=== PATIENT | male | born 1970 | race Caucasian/White ===

== ENCOUNTER → 2017-01-30 | Outpatient (CLI) | payer OTHER ==
--- NOTE | 2017-01-30 09:53 | RADRPT ---
PROCEDURE: XR left knee. CLINICAL INDICATION: Knee pain TECHNIQUE: AP weightbearing, PA weightbearing, lateral weightbearing and sunrise views are availab le for review. COMPARISON: None available FINDINGS: ACL repair with metallic bone anchors. There is mild to moderate osteoarthrosis involving the medial tibial femoral compartment, lateral ti bial femoral compartment and patellofemoral compartment. This is associated with joint space narrowi ng, subchondral sclerosis and osteophytosis. There is otherwise normal mineralization, architecture and alignment. No fractures are identified. No osseous lesions are identified. The soft tissues are unremarkable. IMPRESSION: ACL repair with metallic bone anchors Mild to moderate osteoarthrosis involving the medial tibial femoral compartment, lateral tibial femo ral compartment and patellofemoral compartment. RPTAT: HGDB .Reji Barlow MD, Date Time Electronically viewed and signed by .Reji Barlow MD, on 01/30/2017 09:52 .B/
== END | disposition home or self-care (01) ==
LOC: HKI 08:54
PROVIDERS: ATTEND Orthopaedic Surgery
DX: M17.12 Unilateral primary osteoarthritis, left knee (principal); M25.562 Pain in left knee
CPT/HCPCS: 73564; G0463

== ENCOUNTER → 2017-02-20 | Outpatient (CLI) | payer OTHER ==
[~2017-02-20] MED LIST: FINA1TAB7 PO; FLUO40CA10 PO; TRAM50TA2 PO
--- NOTE | 2017-02-20 17:52 | RADRPT ---
PROCEDURE: Limited x-ray of both lower extremities. CLINICAL INDICATION: Bilateral leg pain. TECHNIQUE: Single frontal view of both lower extremities was obtained from the hips to the calves. COMPARISON: Left knee radiographs dated 01/30/2017. FINDINGS: The hips are grossly normal. There has been prior bilateral anterior cruciate ligament repair. The re are moderate degenerative changes of both knees with osteophytes and medial joint compartment simona rowing. IMPRESSION: 1. Grossly normal hips. 2. Prior bilateral anterior cruciate ligament repair. 3. Moderate degenerative changes of both knees predominately affecting the medial joint compartment s. RPTAT: QQ .Anthony Hong MD, MD Date Time Electronically viewed and signed by .Anthony Hong MD, MD on 02/20/2017 17:52 .R/
== END | disposition home or self-care (01) ==
LOC: HKI 10:28
PROVIDERS: ATTEND Orthopaedic Surgery
DX: Z01.818 Encounter for other preprocedural examination (principal); M17.12 Unilateral primary osteoarthritis, left knee; M25.562 Pain in left knee
CPT/HCPCS: 77073; G0463

== ENCOUNTER 2017-02-28 07:55 | Inpatient (IN) | payer OTHER ==
[2017-02-20 13:18] VITALS: BMI 27.9
[~2017-02-28] VITALS: Ht 170.2 cm; Wt 80.8 kg
[2017-02-28] VITALS (30 sets, daily range): BP systolic 94–129; BP diastolic 32–75; PULSE 0–70; RESP 12–26; Ht 170.2 cm; Wt 80.8 kg
[2017-02-28] MEDS ORDERED: FLUO10CA66 PO (08:19)
[2017-02-28] MEDS ORDERED: oxyCODONE (CR) 10 MG TAB [oxyCONTIN] X1 DOSE PO ONE (08:30)
[2017-02-28] MEDS ORDERED: PAIN COCKTAIL-CEFUROXIME IRR ONE ×7 (08:30)
[2017-02-28] MEDS ORDERED: TRANEXAMIC ACID in SOD CHLORIDE 0.9% 100 ML ON CALL TO OR IV ONE (08:30)
[2017-02-28] MEDS ORDERED: traMADOL 50 MG TAB X 1 DOSE PO ONE (08:30)
[2017-02-28] MEDS ORDERED: CEFAZOLIN 2GM/50 ML (PMX) 50 ML X1 BEFORE INCISION IVPB ONE (08:30)
[2017-02-28] MEDS ORDERED: CELECOXIB 400 MG PO X1 DOSE PO ONE (08:30)
[2017-02-28] MEDS ORDERED: PREGABALIN 300 MG PO X1 PO ONE (08:30)
[2017-02-28] MEDS: LACTATED RINGER'S 1,000 ML IV SCH ×4 (09:19→23:15)
[2017-02-28] MEDS ORDERED: EXPAREL NOTE (BUPIVICAINE LIPOSOMAL) XX SCH (10:30)
[2017-02-28] MEDS ORDERED: FENTAnyl 50 MCG/ML VIAL ONE (11:22)
[2017-02-28] MEDS ORDERED: MIDAZOLAM 1 MG/ML 2 ML INJ ONE (11:22)
[2017-02-28] MEDS ORDERED: PROPOFOL 100 ML ONE (11:22)
[2017-02-28] MEDS ORDERED: DEXAMETHASONE 4 MG/ML 1 ML INJ ONE (11:23)
[2017-02-28] MEDS ORDERED: METOCLOPRAMIDE 10 MG INJ ONE (11:24)
[2017-02-28] MEDS: traMADol 50 MG TAB PO SCH ×3 (12:00→23:10)
[2017-02-28] MEDS ORDERED: VANCOMYCIN 1 GM INJ ONE (12:27)
[2017-02-28] MEDS ORDERED: SODIUM CL BACTERIOSTATIC 30 ML INJ ONE (12:27)
[2017-02-28] MEDS ORDERED: POLYMYXIN B 500000 UNIT INJ ONE (12:27)
--- NOTE | 2017-02-28 12:29 | HPN ---
Date/Time of Note Date/Time of Note DATE: 02/28/17 TIME: 12:29 Interval H&P Admission Note Pt. seen H&P reviewed: No system changes No change from H&P by Dr. Diogenes Sam on 02/20/17 JOHANNA OSEGUERA MD Feb 28, 2017 12:29
[2017-02-28] MEDS ORDERED: CEFAZOLIN 1 GM INJ ONE (12:46)
[2017-02-28] MEDS: BUPIVACAINE LIPOSOME/PF 266 MG/20 ML VIAL INFIL ONE ×2 (13:19→14:10)
[2017-02-28] MEDS ORDERED: EPHEDrine SULFATE 50 MG/5 ML SYG ONE (13:27)
[2017-02-28] MEDS ORDERED: DIPHENHYDRAMINE 50 MG INJ IV PRN (13:30)
[2017-02-28] MEDS ORDERED: ONDANSETRON 4 MG INJ IV PRN ×2 (13:30→15:30)
[2017-02-28] MEDS ORDERED: MEPERIDINE 25 MG INJ IV PRN (13:30)
[2017-02-28] MEDS ORDERED: HYDROmorphONE (0.2 MG/ML) 10ML SYG IV PRN ×3 (13:30)
[2017-02-28] MEDS ORDERED: METOCLOPRAMIDE 10 MG INJ IV PRN (13:30)
[2017-02-28] MEDS ORDERED: PROPOFOL 40 ML ONE (14:21)
[2017-02-28] MEDS: TRANEXAMIC ACID in SOD CHLORIDE 0.9% 100 ML FOR INTRAOP IVPB ONE ×3 (14:22)
[2017-02-28] MEDS ORDERED: BACITRACIN 50000 UNITS INJ ONE (14:44)
--- NOTE | 2017-02-28 15:25 | OPR ---
Date/Time of Note Date/Time of Note DATE: 02/28/17 TIME: 15:23 Operative Report Free Text/Dictation Dictation # [id number] Procedure Date: Feb 28, 2017 Preoperative Diagnosis Left Knee OA Postoperative Diagnosis Same Operation Performed Left TKA Surgeon: JOHANNA OSEGUERA MD property management assistant: ALFONSO BURCH PA-C Anesthesia: general, spinal Anesthesiologist: YENY MA MD Tourniquet Time: 72 minutes Estimated Blood Loss: 50 - 100 ml's Specimens Bone and soft tissue Tubes/Drains Hemovac x 1 Complications: None Pt Condition Post Procedure: stable Disposition: PACU JOHANNA OSEGUERA MD Feb 28, 2017 15:25
--- NOTE | 2017-02-28 15:25 | PN ---
Date/Time of Note Date/Time of Note DATE: 02/28/17 TIME: 15:24 Assessment/Plan Lines/Catheters IV Catheter Type (from Nrsg): Peripheral IV Assessment/Plan Assessment/Plan Stable in PACU, s/p left TKA -cont abx until drains removed -pain meds as needed -ASA/SCDSs for DVT prophylaxis -OOB with PT -monitor drain -check AM labs -d/c vu in AM XR of the left knee is pending at this time Subjective 24 Hr Interval Summary Stable in PACU. Moving all extremities. Denies any pain. Exam/Review of Systems Vital Signs Vitals Vital Signs Date Time Temp Pulse Resp B/P Pulse Ox O2 Delivery O2 Flow Rate FiO2 02/28/17 09:23 98.8 53 16 129/75 99 Room Air Intake and Output 02/27/17 02/27/17 02/28/17 15:00 23:00 07:00 Intake Total 108.1 ml Balance 108.1 ml Exam Free Text/Dictation Hemovac: Minimal Dressing dry Incision clean, dry, and intact without redness or drainage Thigh soft 5/5 Quadriceps, Tibialis Anterior, EHL, Gastroc, Soleus, Peroneals Normal sensation Palpable DT/PT, CR <2 sec No distal edema ALFONSO BURCH PA-C Feb 28, 2017 15:25
[2017-02-28] MEDS ORDERED: NACL 0.9% 3 ML SYG IV SCH (15:30)
[2017-02-28] MEDS ORDERED: ASPIRIN (EC) 325 MG TAB PO ONE (15:30)
[2017-02-28] MEDS ORDERED: MAGNESIUM HYDROXIDE 30ML CUP PO PRN (15:30)
[2017-02-28] MEDS ORDERED: NA PHOSPHATE/BIPHOS 133 ML ENEMA PR PRN (15:30)
[2017-02-28] MEDS ORDERED: DIPHENHYDRAMINE 25 MG CAP PO PRN (15:30)
[2017-02-28] MEDS ORDERED: oxyCODONE 5 MG TAB PO PRN (15:30)
[2017-02-28] MEDS ORDERED: BISACODYL 10 MG SUPP PR PRN (15:30)
[2017-02-28] MEDS: CEFAZOLIN 2 GM/50 ML (PMX) 50 ML IVPB SCH ×2 (15:42→23:10)
[2017-02-28 15:49] LABS: HEMATOCRIT 37.5 % (42.0-52.0); HEMOGLOBIN 12.5 g/dl (14.0-18.0)
--- NOTE | 2017-02-28 15:53 | OPR ---
DATE OF OPERATION: 02/28/2017 PREOPERATIVE DIAGNOSIS: Left knee osteoarthritis. POSTOPERATIVE DIAGNOSIS: Left knee osteoarthritis. OPERATION PERFORMED: Left total knee arthroplasty. SURGEON: Johanna Gutierrez MD SCOREKEEPER: BETZY Fishman COMPONENTS USED: DePuy Attune size 7 femoral component, size 7 tibial base plate, 5 mm polyethylene insert, and a 38 patellar button. ANESTHESIA: Spinal plus general endotracheal intubation plus periarticular injection. ANESTHESIOLOGIST: Belen Cancino MD TOURNIQUET TIME: 72 minutes. ESTIMATED BLOOD LOSS: 50 mL. INTRAVENOUS FLUIDS: 2 liters of crystalloid. SPECIMENS: Bone and soft tissue. DRAINS: Hemovac x1. COMPLICATIONS: None. DISPOSITION: The patient tolerated the procedure well and was taken to the recovery room in stable condition. INDICATIONS: The patient is 47-year-old gentleman who has had progressive worsening pain in the lef t knee who has developed severe osteoarthritis. He had a previous ACL reconstruction. He has faile d nonsurgical means of treatment to control his pain including activity modifications, pain medicati ons, intra-articular injections and ambulatory assist devices. Despite these measures, he has had w orsening pain and I felt he would benefit from a total knee arthroplasty. The risks, benefits, and alternatives of the procedure were explained in detail to the patient. I e xplained the risks of the surgery to include but not be limited to, bleeding and possible need for b lood transfusion; infection; pain; stiffness; neurovascular injury with possible numbness, weakness, and/or paralysis anywhere from the knee down to the toes; fracture; instability; dislocation; wear and/or loosening of the prosthesis and possible need for future revision; blood clots; pulmonary emb olism; and anesthetic complications such as heart attack, stroke, GI bleed, pneumonia, and/or . Ample time was allowed for the patient to ask questions, all of which were addressed and answered. The patient understood the risks involved and wished to proceed. Informed consent was signed prior to the procedure. PROCEDURE: The patient's left knee was initialed with a marking pen in the preoperative area to sugey ntify the correct operative site. The patient was brought to the operating room and transferred fro [facility] to the operating table where a spinal anesthetic was administered. T he patien t was then anesthetized and intubated. A Perez catheter was placed. A timeout was performed to con firm that the left leg was the correct operative site. The patient was given 2 g of Ancef within on e hour prior to the procedure. A tourniquet was placed on the operative proximal thigh. The operat kimberly knee and lower extremity were prepped and draped in the usual sterile fashion. The operative lo wer extremity was elevated and exsanguinated with an Esmarch tourniquet. The proximal thigh tourniq uet was inflated to 300 mmHg. The knee was flexed. A midline incision was made and carried down through the subcutaneous tissue a nd fat with sharp dissection. Limited medial and lateral flaps were raised. A median parapatellar arthrotomy approach was performed. Synovial fluid was normal in color and consistency. The patella was everted and the knee flexed. There were severe tricompartmental osteoarthritic changes noted. A medial release was performed at the joint line to the midcoronal plane. The ACL and PCL and remnan ts of the menisci were excised. The stepped drill was used to open up the femoral canal which was i rrigated and sucked dry. The intramedullary guide alex was passed up the femur, and the distal cutti ng block was pinned into place for a 6 degree valgus cut, taking 10 mm of bone off distally. The osc illating saw was used to make the cut. The tibia was subluxed anteriorly. The tibial cutoff jig was placed over the center of the talus d istally and over the junction of the medial and middle third of the tibial tubercle proximally. The guide was pinned into place and the oscillating saw was used to make the cut. The tibia was sized. The extension gap was checked and accommodated the 5 mm spacer block with the knee in full extensio n. There was no varus or valgus instability. At this point, the femur was sized with the posterior referencing guide. Two holes were drilled in 3 degrees of external rotation. The two holes were in line with the transepicondylar axis, perpendi cular to Warrick's line, and in line with the tibial cutoff jig brought up with the knee flexed 90 degrees and tensed with 2 lamina spreaders, suggesting the femoral rotation was correct. The four- in-one cutting block was pinned into place. The anterior and posterior cuts and chamfer cuts were m mary with the oscillating saw. The flexion gap was checked and accommodated the 5 mm spacer block at 90 degrees. There was no varus or valgus instability, suggesting the flexion and extension gaps we re now equal. The central box was cut out on the femur. The tibia was drilled and punched in proper rotation. Tri al components were placed into position with a trial insert. The patella was cut from 26 mm down to 16 mm and sized. Three holes were drilled and the trial button placed in position. With all the t rials now in place, the knee was taken through range of motion and came to full extension as evidenc ed by the fact that with the foot on my abdomen and axial loading, there was no tendency for the kne e to flex. The knee was able to be flexed to 125 degrees with good patellar tracking with no latera l tilt or subluxation. At this point, I was satisfied with the overall range of motion, stability, and patellar tracking. The trials were removed. The real components were opened. Two bags of cement were mixed, one with and one without premixed antibiotic. The knee was irrigated with antibiotic saline and sucked dry. Once the cement was in a doughy stage, the real components were cemented into place. The knee was held in full extension, and the patellar component was held with a patellar clamp. All excess cemen t was removed with curettes. As the cement was hardening, the synovial/capsular layer was infiltrat ed with a mixture of 150 mg of 0.5% bupivacaine, 8 mg of Duramorph, 300 mcg of epinephrine, 30 mg of Toradol, 100 mcg of clonidine, 750 mg of cefuroxime and 86 mL of normal saline, followed by an inje ction of 266 mg of liposomal bupivacaine. A Hemovac drain was placed in the deep portion of the wound and brought out the anterolateral thigh. Once the cement was completely hardened, the trial liner was removed, and the real insert was open ed. The tourniquet was let down, and there was good hemostasis. The knee was then irrigated with a mixture of Betadine/saline and then antibiotic saline with pulsatile lavage. The real insert was impacted into the tibia and reduced onto to the femur. The arthrotomy was closed with a few interrupted #1 Ethibond in a uyanam-qo-qetus fashion, and then closed in a watertight fashion with a running #2 Stratafix suture. Knee flexion was checked against gravity and came to 125 degrees. The subcutaneous layer was irrigated and closed with 2-0 Stratafi x, and then 3-0 Vicryl and then camden on the skin. The wound was covered with an occlusive dressi ng, and secured with cast padding and a bias dressing. The drain was secured with 3-0 nylon. The sponge and needle counts were correct at the end of the case. The patient was then awakened, ex tubated, and taken to the recovery room in stable condition. Dictated By: JOHANNA CORONADO/NTS Conf#: [id number] DID#: [id number]
[2017-02-28 16:06] LABS: CALCIUM 8.9 mg/dl (8.4-10.2); CREATININE 0.81 mg/dl (0.61-1.24); POTASSIUM 4.2 mmol/L (3.5-5.1)
[2017-02-28] MEDS: [UNRECOGNIZED DRUG - REMARK] XX SCH (17:30)
[2017-02-28] MEDS: ACETAMINOPHEN 1000MG/100ML IV 100 ML IVPB SCH (17:39)
[2017-02-28] MEDS: PANTOPRAZOLE (EC) 40 MG TAB PO SCH (17:39)
--- NOTE | 2017-02-28 17:40 | RADRPT ---
PROCEDURE: AP and lateral postop images of the left knee. CLINICAL INDICATION: Postoperative images following left knee arthroplasty. TECHNIQUE: AP and cross-table lateral views of the knee are performed. COMPARISON: Left knee 01/30/2017. FINDINGS: There are drainage tubes in the suprapatellar bursa of with air noted in the joint space. There is subcutaneous air from recent surgery with skin camden over the ventral surface of the knee. The pa tella femoral and tibial components of the prosthesis are anatomically aligned. The fibula is unrem arkable. There are screws embedded in the distal femur from prior anterior cruciate ligament repair . IMPRESSION: 1. Status post left knee arthroplasty with postsurgical changes. 2. Evidence of prior anterior cruciate ligament repair with metallic bone anchor still noted in the distal left femur. RPTAT:AAJJ Physician Lesly Date Time Electronically viewed and signed by Physician Lesly on 02/28/2017 17:39 SARA/
--- NOTE | 2017-02-28 18:29 | CONS ---
DATE OF ADMISSION: 02/28/2017 DATE OF CONSULTATION: 02/28/2017 TYPE OF CONSULTATION: Postoperative Medical Thank you very much for allowing me to evaluate the above patient who just underwent left knee arthr oplasty. HISTORICAL EVENTS: As you well know, this patient has had progressive disabling pain involving his left knee and he elected to proceed with surgery today. Postoperatively on the orthopedic floor, he is comfortable without cough, wheezing, shortness of breath, nausea, vomiting, abdominal or chest p ain. PAST MEDICAL HISTORY: Includes: 1. Male pattern baldness: 2. Anxiety. 3. History of left foot fracture. 4. History of left ring finger DIP septic joint, requiring surgical debridement. 5. Bilateral knee arthroscopic surgery. 6. Left rotator cuff repair. FAMILY HISTORY: Positive for prostate and lung cancer. SOCIAL HISTORY: He drinks socially, does not smoke tobacco. MEDICATIONS: 1. Fluoxetine 10 mg per day. 2. Propecia 1 mg per day. PHYSICAL EXAMINATION: GENERAL: [place] male in no acute distress. VITAL SIGNS: Blood pressure 122/70, pulse 70, respirations are 20, he was afebrile. EYES: Extraocular muscles were full. NOSE, MOUTH, AND THROAT: Normal. NECK: Supple. There was no jugular venous distention, thyroid enlargement or adenopathy. Carotids 2+, no bruits. LUNGS: Clear. HEART: Rhythm was regular, no murmur. No third or fourth sound. ABDOMEN: Nontender. Liver and spleen were not palpable. No masses or tenderness were noted. EXTREMITIES: The left knee was bandaged. The right calf was not tender. There was no edema. IMPRESSION: 1. Stable postop left knee replacement. 2. We will evaluate daily for signs and symptoms of thromboembolic disease despite appropriate deep venous thrombosis prophylaxis. Dictated By: SUJEY BOWSER MD MR/NTS Conf#: [id number] DID#: [id number] CC: JOHANNA OSEGUERA MD;*EndCC*
[2017-02-28] MEDS ORDERED: TRANEXAMIC ACID 810 MG in SOD CHLORIDE 0.9% 100 ML IVPB ONE ×2 (18:30→21:30)
[2017-02-28] MEDS: PREGABALIN 50 MG CAP PO SCH (20:47)
[2017-02-28] MEDS: DOCUSATE SODIUM 100 MG CAP PO SCH (20:47)
[2017-02-28] MEDS ORDERED: FINASTERIDE 1 MG PO SCH (21:00)
[2017-03-01] VITALS: BP 107/59; RESP 18
[2017-03-01] MEDS: ACETAMINOPHEN 1000MG/100ML IV 100 ML IVPB SCH ×3 (00:17→12:05)
[2017-03-01] MEDS: [UNRECOGNIZED DRUG - REMARK] XX SCH ×3 (01:30→15:30)
[2017-03-01 04:43] VITALS: BP 116/56; PULSE 45; RESP 18
[2017-03-01] MEDS: traMADol 50 MG TAB PO SCH ×3 (05:06→18:03)
[2017-03-01] MEDS: PANTOPRAZOLE (EC) 40 MG TAB PO SCH ×2 (05:06→17:06)
[2017-03-01] MEDS: LACTATED RINGER'S 1,000 ML IV SCH ×5 (05:06→22:43)
[2017-03-01 05:43] LABS: HEMATOCRIT 34.8 % (42.0-52.0); HEMOGLOBIN 11.5 g/dl (14.0-18.0)
[2017-03-01 05:53] LABS: CALCIUM 8.9 mg/dl (8.4-10.2); CREATININE 0.81 mg/dl (0.61-1.24)
[2017-03-01] MEDS: CEFAZOLIN 2 GM/50 ML (PMX) 50 ML IVPB SCH (06:12)
--- NOTE | 2017-03-01 07:48 | PDOCDIS ---
Discharge Instructions DIAGNOSIS Discharge Diagnosis: s/p left TKA CONDITION Patient Condition: Good ACTIVITY: Activity Restrictions: Slowly Increase Activity Rest between Activity Avoid heavy lifting Do not operate Machinery Do not operate Power Tool Avoid Heavy Housework Keep Limb Elevated Bathing Restrictions: Shower FOLLOW UP/APPOINTMENTS Appointments follow up in the office on 03/11/17 OTHER ORDERS: Other Orders: S/P TKA Physical Therapy: Three times per week at home x 2 weeks Daily in Rehab/SNF WB STATUS: WBAT 1. Strengthening exercises for both upper and un-operated lower extremities. 2. Gait training with front wheeled walker 3. Active range of motion exercises to operative knee. 4. When not working on knee range of motion exercises, distal towel roll under operative ankle/distal calf to promote full extension. 5. DO NOT PUT ANYTHING BEHIND OPERATIVE KNEE!!! 6. Quadriceps and hamstring strengthening. 7. May switch to cane in contra lateral hand 6 weeks after surgery. 8. Physical Therapy can open case if nursing is not available. 9. Use Ice Machine as instructed from date of surgery while at rest 3X/day. 10. Patient requires mobile SCDs to reduce risk of developing DVT following TKA. Patient will use the mobile SCDs for 30 days postoperatively. Bathing assistance by home health aide twice weekly if Medicare patient. Occupational Therapy: Evaluation for assistive devices and ADL training. Wound Care: Keep incision dry & covered with Tegaderm until first visit with Dr. Gutierrez Anticoagulation Orders: Enteric Coated Aspirin 325 mg po bid x 6 weeks from date of surgery Follow-up:Call for an appointment with Dr. Gutierrez in 1 week after discharged from hospital at DME Orders: MARILU, 3-in-1 Commode, Polar ice machine, Mobile SCDs ALFONSO BURCH PA-C Mar 01, 2017 07:48
[2017-03-01] MEDS ORDERED: TRAM50TA2 PO (07:49)
[2017-03-01] MEDS ORDERED: PREG50CA PO (07:49)
[2017-03-01] MEDS ORDERED: PANT40TA4 PO (07:49)
[2017-03-01] MEDS ORDERED: ASPI325T32 PO (07:49)
[2017-03-01] MEDS ORDERED: HYDR-905 PO (07:49)
[2017-03-01 08:48] VITALS: BP 108/61; RESP 16
--- NOTE | 2017-03-01 09:05 | PN ---
Date/Time of Note Date/Time of Note DATE: 03/01/17 TIME: 09:04 Assessment/Plan Lines/Catheters IV Catheter Type (from Nrsg): Peripheral IV Perez in Place (from Nrsg): Yes Assessment/Plan Assessment/Plan Stable POD #1, s/p left TKA -d/c abx -pain med as needed -ASA/SCDs -OOB with PT -drain removed -check AM labs -d/c planning. Will plan to go home upon discharge Subjective 24 Hr Interval Summary No acute overnight events. Denies significant knee pain. VSS, afebrile. Will plan to go home upon discharge Exam/Review of Systems Vital Signs Vitals Vital Signs Date Time Temp Pulse Resp B/P Pulse Ox O2 Delivery O2 Flow Rate FiO2 03/01/17 08:48 98.3 48 16 108/61 98 03/01/17 04:43 Room Air 02/28/17 16:33 2.0 Intake and Output 02/28/17 02/28/17 03/01/17 15:00 23:00 07:00 Intake Total 208.1 ml 1558.1 ml 2250 ml Output Total 770 ml 1100 ml 1520 ml Balance -561.9 ml 458.1 ml 730 ml Exam Free Text/Dictation Hemovac: 240cc Dressing dry Incision clean, dry, and intact without redness or drainage Thigh soft 5/5 Quadriceps, Tibialis Anterior, EHL, Gastroc, Soleus, Peroneals Normal sensation Palpable DT/PT, CR <2 sec No distal edema Results Result Diagram: 03/01/17 0430 03/01/17 0431 ALFONSO BURCH PA-C Mar 01, 2017 09:05
[2017-03-01] MEDS: FLUOXETINE 10 MG CAP PO SCH (09:21)
[2017-03-01] MEDS: PREGABALIN 50 MG CAP PO SCH ×2 (09:21→20:33)
[2017-03-01] MEDS: DOCUSATE SODIUM 100 MG CAP PO SCH ×2 (09:21→20:33)
[2017-03-01] MEDS: ASPIRIN (EC) 325 MG TAB PO SCH ×2 (09:21→20:33)
[2017-03-01] MEDS: CELECOXIB 200 MG CAP PO SCH (09:21)
[2017-03-01 09:24] LABS: ADD UMIC NO; URINE BILIRUBIN (Dip) NEGATIVE (NEGATIVE); URINE BLOOD (Dip) NEGATIVE (NEGATIVE); URINE COLOR LT. YELLOW (YELLOW); URINE GLUCOSE (Dip) NEGATIVE (NEGATIVE); URINE KETONES (Dip) NEGATIVE (NEGATIVE); URINE LEUKOCYTE ESTERASE (Dip) NEGATIVE (NEGATIVE); URINE NITRITE (Dip) NEGATIVE (NEGATIVE); URINE TOTAL PROTEIN (Dip) NEGATIVE (NEGATIVE); URINE UROBILINOGEN (Dip) 0.2 E.U./dL (0.1-1.0)
[2017-03-01] MEDS: oxyCODONE 5 MG TAB PO PRN ×3 (10:06→22:49)
--- NOTE | 2017-03-01 10:33 | CONS ---
Date/Time of Note Date/Time of Note DATE: 03/01/17 TIME: 10:32 Assessment/Plan Assessment/Plan Chief Complaint/Hosp Course #1 he is one day postop left total knee replacement. He has been up walking with physical therapy and is doing well. #2 continue current medication and physical therapy. Problems: Consultation Date/Type/Reason Admit Date/Time Feb 28, 2017 at 07:55 Initial Consult Date 24 HR Interval Summary Free Text/Dictation He is one day postop left total knee replacement. He has no complaints. Constitutional: improved, no complaints Exam/Review of Systems Vital Signs Vitals Vital Signs Date Time Temp Pulse Resp B/P Pulse Ox O2 Delivery O2 Flow Rate FiO2 03/01/17 08:48 98.3 48 16 108/61 98 03/01/17 04:43 Room Air 02/28/17 16:33 2.0 Intake and Output 02/28/17 02/28/17 03/01/17 15:00 23:00 07:00 Intake Total 208.1 ml 1558.1 ml 2250 ml Output Total 770 ml 1100 ml 1520 ml Balance -561.9 ml 458.1 ml 730 ml Exam Constitutional: alert, oriented, well developed Psych: nl mood/affect, no complaints Cardiovascular: regular rate and rhythm Musculoskeletal: nl extremities to inspection Results Result Diagram: 03/01/17 0430 03/01/17 0431 Results 24 hrs Laboratory Tests Test 02/28/17 15:40 03/01/17 04:30 03/01/17 04:31 03/01/17 06:30 Hemoglobin 12.5 L 11.5 L Hematocrit 37.5 L 34.8 L Sodium Level 136 137 Potassium Level 4.2 4.0 Chloride Level 107 105 Carbon Dioxide Level 27 27 Anion Gap 6 L 9 Blood Urea Nitrogen 16 13 Creatinine 0.81 0.81 Glucose Level 130 143 Calcium Level 8.9 8.9 Urine Color LT. YELLOW Urine Clarity CLEAR Urine pH 6.0 Urine Specific [place] 1.025 Urine Ketones NEGATIVE Urine Nitrite NEGATIVE Urine Bilirubin NEGATIVE Urine Urobilinogen 0.2 E.U./dL Urine Leukocyte Esterase NEGATIVE Urine Hemoglobin NEGATIVE Urine Glucose NEGATIVE Urine Total Protein NEGATIVE Medications Medications Current Medications Lactated Ringer's (Lr) 1,000 ml @ 100 mls/hr Q10H IV Last administered on t 05:06; Admin Dose 100 MLS/HR; Start 02/28/17 at 08:30 Miscellaneous Information 1 ea NOTE XX ; Start 02/28/17 at 10:30; Stop 03/04/17 at 10:29 Fluoxetine HCl (Prozac) 30 mg DAILY PO Last administered on 03/01/17 09:21; Admin Dose 30 MG; Start 03/01/17 at 09:00 Miscellaneous Information 1 mg 1 mg HS PO ; Start 02/28/17 at 21:00; Status UNV Lactated Ringer's (Lr) 1,000 ml @ 125 mls/hr Q8H IV ; Start 02/28/17 at 15:15 Celecoxib 200 mg 200 mg DAILY PO Last administered on 03/01/17 09:21; Admin Dose 200 MG; Start 03/01/17 at 09:00 Acetaminophen (Ofirmev 1000mg/ 100ml Iv) 100 ml @ 400 mls/hr Q6 IVPB Last administered on 03/01/17 05:07; Admin Dose 400 MLS/HR; Start 02/28/17 at 18:00; Stop 03/01/17 at 17:59 Tramadol HCl (Ultram) 50 mg Q6 PO Last administered on 03/01/17 05:06; Admin Dose 50 MG; Start 02/28/17 at 12:00; Stop 03/03/17 at 11:59 Oxycodone HCl (Roxicodone) 5 mg Q4H PRN PO PAIN LEVEL 1-3; Start 02/28/17 at 15: 30 Oxycodone HCl (Roxicodone) 10 mg Q4H PRN PO PAIN LEVEL 4-7 Last administered on 03/01/17 10:06; Admin Dose 10 MG; Start 02/28/17 at 15:30 Hydromorphone HCl (Dilaudid) 1 mg Q3H PRN IV PAIN LEVEL 8-10; Start 02/28/17 at 15:30 Ondansetron HCl (Zofran Inj) 4 mg Q6H PRN IV NAUSEA AND/OR VOMITING; Start 02/28 at 15:30 Bisacodyl (Dulcolax Supp) 10 mg Q12H PRN OR CONSTIPATION; Start 02/28/17 at 15: 30 Magnesium Hydroxide (Milk Of Mag) 30 ml BID PRN PO CONSTIPATION; Start 02/28/17 at 15:30 Sodium Biphosphate/ Sodium Phosphate (Fleet Enema) 133 ml DAILY PRN OR CONSTIPATION; Start 02/28/17 at 15:30 Docusate Sodium (Colace) 100 mg BID PO Last administered on 03/01/17 09:21; Admin Dose 100 MG; Start 02/28/17 at 21:00 Diphenhydramine HCl (Benadryl) 25 mg Q6H PRN PO PRURITUS; Start 02/28/17 at 15: 30 Aspirin (Ecotrin) 325 mg BID PO Last administered on 03/01/17 09:21; Admin Dose 325 MG; Start 03/01/17 at 09:00 Pantoprazole (Protonix Tab) 40 mg BID@06,18 PO Last administered on 03/01/17 05 :06; Admin Dose 40 MG; Start 02/28/17 at 18:00 Pregabalin (Lyrica) 50 mg BID PO Last administered on 03/01/17 09:21; Admin Dose 50 MG; Start 02/28/17 at 21:00 Miscellaneous Information (*Order Clarification Bulletin) PROPECIA IS NON FORMULARY ITEM...PLE... Q8H XX ; Start 02/28/17 at 17:30 TEJAL RICHARDSON MD Mar 01, 2017 10:33
[2017-03-01] MEDS: HYDROmorphONE 1 MG/ML SYG IV PRN (19:49)
[2017-03-01 19:59] VITALS: BP 120/62; PULSE 77; RESP 18
[2017-03-02] MEDS: LACTATED RINGER'S 1,000 ML IV SCH ×4 (00:02→14:56)
[2017-03-02] MEDS: [UNRECOGNIZED DRUG - REMARK] XX SCH ×2 (01:30→08:40)
[2017-03-02] MEDS: HYDROmorphONE 1 MG/ML SYG IV PRN (02:02)
[2017-03-02] MEDS: PANTOPRAZOLE (EC) 40 MG TAB PO SCH (05:28)
[2017-03-02] MEDS: oxyCODONE 5 MG TAB PO PRN ×3 (05:29→15:10)
[2017-03-02 05:33] LABS: HEMATOCRIT 33.3 % (42.0-52.0); HEMOGLOBIN 10.5 g/dl (14.0-18.0)
[2017-03-02] MEDS: traMADol 50 MG TAB PO SCH ×3 (05:33→12:09)
[2017-03-02 05:56] LABS: CALCIUM 8.6 mg/dl (8.4-10.2); CREATININE 1.12 mg/dl (0.61-1.24); POTASSIUM 5.6 mmol/L (3.5-5.1)
[2017-03-02 08:10] VITALS: BP 116/56; RESP 16
--- NOTE | 2017-03-02 08:28 | PN ---
Date/Time of Note Date/Time of Note DATE: 03/02/17 TIME: 08:25 Assessment/Plan VTE Prophylaxis VTE Prophylaxis Intervention: ambulation, SCD's Lines/Catheters IV Catheter Type (from Nrsg): Saline Lock Perez in Place (from Nrsg): Yes Assessment/Plan Assessment/Plan -Pain Meds as needed -Dress change performed today -ASA for DVT Prophylaxis x 6 weeks outpatient discussed. -Continue monitoring as outpatient on discharge -Follow-up at scheduled postop outpatient appointment or sooner if there is any issue. -Tegaderm dressings given with specific instructions to use as outpatient to keep wound dry until camden are moved around 10 days. -Patient Stable -Discharge to Home with home health Subjective 24 Hr Interval Summary 47-year-old male postop day 2 status post left total knee arthroplasty. Patient continues to do well status post surgery. Patient has been up and ambulating with assisted ambulatory device. Denies any chest pain/tightness, shortness of breath or calf pain. Does experience pain complaints that he states is well controlled with postoperative pain medication. Patient would like to go home today. Constitutional: improved Pain Control: well controlled Exam/Review of Systems Vital Signs Vitals Vital Signs Date Time Temp Pulse Resp B/P Pulse Ox O2 Delivery O2 Flow Rate FiO2 03/02/17 08:10 89.2 68 16 116/56 97 03/01/17 19:59 Room Air 02/28/17 16:33 2.0 Intake and Output 03/01/17 03/01/17 03/02/17 15:00 23:00 07:00 Intake Total 100 ml 2110 ml 1700 ml Output Total 1600 ml 1500 ml Balance 100 ml 510 ml 200 ml Exam Free Text/Dictation -Hemovac: Removed -Incision: Clean, Dry and Intact without any redness or drainage -5/5 Tibialis Anterior, EHL Gastrocnemius/Soleus and Peroneals -Patient is able to fully extend and actively flex up to 120. -Normal Sensation -Palpable DP/PT, Capillary Refill <2 secs -No Distal Edema -Negative Ahmet Sign/No calf pain -Toes Freely Movable Constitutional: alert, oriented, well developed Results Result Diagram: 03/02/17 0428 03/02/17 0428 DORIS BANERJEE PA-C Mar 02, 2017 08:28
[2017-03-02] MEDS: FLUOXETINE 10 MG CAP PO SCH (08:39)
[2017-03-02] MEDS: DOCUSATE SODIUM 100 MG CAP PO SCH (08:39)
[2017-03-02] MEDS: PREGABALIN 50 MG CAP PO SCH (08:39)
[2017-03-02] MEDS: ASPIRIN (EC) 325 MG TAB PO SCH (08:39)
[2017-03-02] MEDS: CELECOXIB 200 MG CAP PO SCH (08:39)
--- NOTE | 2017-03-02 11:15 | CONS ---
Date/Time of Note Date/Time of Note DATE: 03/02/17 TIME: 11:07 Consult Date/Type/Reason Admit Date/Time Feb 28, 2017 at 07:55 Initial Consult Date 02/28/2017 Type of Consultation: medicine Reason for Consultation medical management. Anxiety. HTN. Constipation Possible CAREY/hyperkalemia Subjective Patient doing well this am. Excited to go home. Denies fevers, chills, nausea, vomiting, diarrhea, chest pain, sob, abdominal pain. Surgical site pain adequately controlled. Does endorse constipation. Has not had BM since admission. Feels like he is about to have a hard BM. Objective Vital Signs Date Time Temp Pulse Resp B/P Pulse Ox O2 Delivery O2 Flow Rate FiO2 03/02/17 08:10 89.2 68 16 116/56 97 03/01/17 19:59 Room Air 02/28/17 16:33 2.0 Intake and Output 03/01/17 03/01/17 03/02/17 15:00 23:00 07:00 Intake Total 100 ml 2110 ml 1700 ml Output Total 1600 ml 1500 ml Balance 100 ml 510 ml 200 ml Exam GEN-nad, well developed, well nourished, no acute distress HEENT- MMM, OP clear, no scleral icterus Resp- CTAB, no w/r/r CV-RRR, nml s1/s2, no m/r/g Abd-soft, nt/ND, +BS Ext- no c/c/e. L knee dressing not undone as recently checked by ortho Results/Medications Result Diagram: 03/02/17 0428 03/02/17 0428 Results 24 hrs Laboratory Tests Test 03/02/17 04:28 Hemoglobin 10.5 L Hematocrit 33.3 L Sodium Level 141 Potassium Level 5.6 H Chloride Level 107 Carbon Dioxide Level 29 Anion Gap 11 Blood Urea Nitrogen 17 Creatinine 1.12 Glucose Level 104 Calcium Level 8.6 Medications Current Medications Lactated Ringer's (Lr) 1,000 ml @ 100 mls/hr Q10H IV Last administered on t 05:06; Admin Dose 100 MLS/HR; Start 02/28/17 at 08:30 Miscellaneous Information 1 ea NOTE XX ; Start 02/28/17 at 10:30; Stop 03/04/17 at 10:29 Fluoxetine HCl (Prozac) 30 mg DAILY PO Last administered on 03/02/17 08:39; Admin Dose 30 MG; Start 03/01/17 at 09:00 Miscellaneous Information 1 mg 1 mg HS PO ; Start 02/28/17 at 21:00; Status UNV Lactated Ringer's (Lr) 1,000 ml @ 125 mls/hr Q8H IV ; Start 02/28/17 at 15:15 Celecoxib (Celebrex) 200 mg DAILY PO Last administered on 03/02/17 08:39; Admin Dose 200 MG; Start 03/01/17 at 09:00 Tramadol HCl (Ultram) 50 mg Q6 PO Last administered on 03/01/17 18:03; Admin Dose 50 MG; Start 02/28/17 at 12:00; Stop 03/03/17 at 11:59 Oxycodone HCl (Roxicodone) 5 mg Q4H PRN PO PAIN LEVEL 1-3; Start 02/28/17 at 15: 30 Oxycodone HCl (Roxicodone) 10 mg Q4H PRN PO PAIN LEVEL 4-7 Last administered on 03/02/17 09:23; Admin Dose 10 MG; Start 02/28/17 at 15:30 Hydromorphone HCl (Dilaudid) 1 mg Q3H PRN IV PAIN LEVEL 8-10 Last administered on 03/02/17 02:02; Admin Dose 1 MG; Start 02/28/17 at 15:30 Ondansetron HCl (Zofran Inj) 4 mg Q6H PRN IV NAUSEA AND/OR VOMITING; Start 02/28 at 15:30 Bisacodyl (Dulcolax Supp) 10 mg Q12H PRN [place] CONSTIPATION; Start 02/28/17 at 15: 30 Magnesium Hydroxide (Milk Of Mag) 30 ml BID PRN PO CONSTIPATION; Start 02/28/17 at 15:30 Sodium Biphosphate/ Sodium Phosphate (Fleet Enema) 133 ml DAILY PRN [place] CONSTIPATION; Start 02/28/17 at 15:30 Docusate Sodium (Colace) 100 mg BID PO Last administered on 03/02/17 08:39; Admin Dose 100 MG; Start 02/28/17 at 21:00 Diphenhydramine HCl (Benadryl) 25 mg Q6H PRN PO PRURITUS; Start 02/28/17 at 15: 30 Aspirin (Ecotrin) 325 mg BID PO Last administered on 03/02/17 08:39; Admin Dose 325 MG; Start 03/01/17 at 09:00 Pantoprazole (Protonix Tab) 40 mg BID@06,18 PO Last administered on 03/02/17 05 :28; Admin Dose 40 MG; Start 02/28/17 at 18:00 Pregabalin (Lyrica) 50 mg BID PO Last administered on 03/02/17 08:39; Admin Dose 50 MG; Start 02/28/17 at 21:00 Miscellaneous Information (*Order Clarification Bulletin) PROPECIA IS NON FORMULARY ITEM...PLE... Q8H XX ; Start 02/28/17 at 17:30 Assessment/Plan Chief Complaint/Hosp Course 47 y/o male pmh anxiety s/p LKA 02/28/17. Problems: Additional Assessment/Plan Ortho #s/p L knee arthroplasty -ASA/SCD for dvt PPX -PT -pain control per surgery Renal #??Acute kidney injury/hyperkalemia-Cr up from 0.8-->1.12 from this am. This is probably random error and unlikely true kidney injury. Patient has had good ins. No obvious nephrotoxic agents. Potassium also likely elevated due to hemolysis -we will repeat this bmp stat and ensure that cr and k downtrend toward baseline prior to discharge GI #constipation-likely 2/2 pain meds -milk of mag, fleet enema. Will try to make sure patient has BM before discharge hoem -counseled on importance of bowel regimen at [facility] Psych #anxiety-stable -prozac 10 Dispo: if cr and K improved on repeat BMP patient can be discharged home with home health. If not may have to remain inpatient until tomorrow. Also temp of ~ 89 likely error. Nurse will repeat. GARY KAMARA MD Mar 02, 2017 11:15
[2017-03-02 12:41] LABS: CREATININE 0.85 mg/dl (0.61-1.24)
[2017-03-02 12:42] LABS: CALCIUM 9.1 mg/dl (8.4-10.2)
--- NOTE | 2017-03-03 18:11 | DS ---
DATE OF ADMISSION: 02/28/2017 DATE OF DISCHARGE: 03/02/2017 CONDITION UPON DISCHARGE: Stable. ADMITTING DIAGNOSIS: Left knee osteoarthritis. DISCHARGE DIAGNOSIS: Status post left total knee arthroplasty. PROCEDURE PERFORMED: Left total knee arthroplasty. HOSPITAL COURSE: This is a 47-year-old male who was seen in the clinic complaining of right knee pain. He previously had an ACL reconstruction on the left knee and radiographs demonstrated advanced osteoarthritis of the left knee. Given the x-ray findings, it was thought he would benefit from a left total knee arthroplasty. On 02/28/2017, the patient was admitted and taken to the operating room where he underwent a left total knee arthroplasty. There were no intraoperative complications. The patient tolerated the procedure well. He was taken to the recovery room in stable condition. Pain was well controlled with oral pain medication. He was started on aspirin, SCDs for DVT prophylaxis. He remained hemodynamically stable and neurovascularly intact throughout his hospital stay. On postoperative day one, he began physical therapy and was deemed stable for discharge on postoperative day 2. Prior to discharge, the incision was inspected and noted to be clean, dry and intact. Dressing changes were done prior to patient going home. LABORATORY ANALYSIS: Hemoglobin 10.5, hematocrit 33.3. Chemistry panel was within normal limits. DISCHARGE MEDICATIONS: 1. [place] 7.5/325 mg. 2. Tramadol 50 mg. 3. Lyrica 40 mg. 4. Aspirin 325 mg. 5. Additionally, the patient is to resume all his normal home medications. DISCHARGE INSTRUCTIONS: The patient will be discharged home in stable condition. He should resume a normal diet. Activity includes weightbearing as tolerated on left lower extremity. He will begin physical therapy with home health. He will be discharged home with the medications noted above. Resume all his normal home medications. The patient is to call the office or go to the emergency room for any concerns including increased redness, swelling, drainage, fever or any concern regarding the operation or site of incision. Patient is to follow up in the office on 03/08/2017. Dictated By: ALFONSO BO for JOHANNA KWON/NTS Conf#: [id number] DID#: [id number] CC: JOHANNA OSEGUERA MD;*EndCC* MTDD
== END 2017-03-02 16:10 | disposition home health service (06) | DRG 470 ==
LOC: REC 07:55 → MS1 17:10
PROVIDERS: ADMIT Orthopaedic Surgery; ATTEND Orthopaedic Surgery
PROC: 0SRD0J9 Replacement of Left Knee Joint with Synthetic Substitute, Cemented, Open Approach (ICD-10-PCS; principal; 2017-02-28 10:30)
DX: M17.12 Unilateral primary osteoarthritis, left knee (principal); F41.1 Generalized anxiety disorder; K59.00 Constipation, unspecified
CPT/HCPCS: 73560; 80048; 81003; 85014; 85018; 86850; 86900; 86901; 86920; 87081; 97116; 97162; 97166; 97530; Z7610; C1776; C9290; J0131; J0171; J0690; J0697; J0735; J1100; J1170; J1885; J2250; J2274; J2405; J2765; J3010; J3370; J7120

== ENCOUNTER → 2017-03-11 | Outpatient (CLI) | payer OTHER ==
[~2017-03-11] MED LIST changes: +ASPI325T32 PO; +FLUO10CA66 PO; -FLUO40CA10 PO; +HYDR-905 PO; +PANT40TA4 PO; +PREG50CA PO
--- NOTE | 2017-03-11 10:21 | RADRPT ---
PROCEDURE: XR left knee. CLINICAL INDICATION: Knee pain. TECHNIQUE: AP and lateral weightbearing views are available for review. COMPARISON: 02/28/2017 FINDINGS: There is a total knee replacement. There is no evidence of loosening of the prosthesis. There is no evidence of hardware failure. There was a previous ACL repair with a anchor in the distal femur. The osseous structures are normal in mineralization, architecture and alignment No acute fracture or di slocation is seen.No osseous lesions are identified. The soft tissues are unremarkable . IMPRESSION: Unremarkable total knee replacement. RPTAT: HGDB .Reji Barlow MD, MD Date Time Electronically viewed and signed by .Reji Barlow MD, on 03/11/2017 10:21 .B/
--- NOTE | 2017-03-12 01:18 | HKNOTE ---
DATE OF SERVICE: 03/11/2017 INTERVAL HISTORY: The patient presents today for his first postoperative evaluation. He is 10 days status post left total knee arthroplasty. He is doing excellent overall. He is ambulating without any assistive devices. He has been taking aspirin twice a day for DVT prophylaxis. He has been doing physical therapy with home health, but feels ready to transition to outpatient physical therapy program. He has been having some mild intermittent pain. He presents today for his first postoperative evaluation. PHYSICAL EXAMINATION: Today, he is alert and oriented x4 and in no acute distress. Exam of the incision demonstrates it to be clean, dry and intact. Del are in place. He is ambulating without any assistive devices. Range of motion is 0 to 105 degrees. There is no erythema or warmth. There is some mild effusion. The compartments are otherwise soft. Homans sign is negative. He is neurovascularly intact distally. IMAGING: X-rays of the left knee were obtained today and reviewed by me. They demonstrate good anatomic alignment with no fracture or dislocation identified. ASSESSMENT: Ten days status post left total knee arthroplasty, doing very well overall. PLAN: The del were removed today and Steri-Strips were applied. He is to continue physical therapy with home health and transition to an outpatient physical therapy program. Additionally, he is to continue aspirin twice daily for a period of 6 weeks for DVT prophylaxis. His pain medication was refilled today. We will see him back in 4 weeks for repeat evaluation. Dictated By: ALFONSO BO for JOHANNA KWON/WILIAN Conf#: [id number] DID#: [id number] WILMAN
== END | disposition home or self-care (01) ==
LOC: HKI 09:11
PROVIDERS: ATTEND Orthopaedic Surgery
DX: Z47.1 Aftercare following joint replacement surgery (principal); Z96.652 Presence of left artificial knee joint

== ENCOUNTER → 2017-04-08 | Outpatient (CLI) | payer OTHER | END | disposition home or self-care (01) | LOC: HKI 08:44 | PROVIDERS: ATTEND Orthopaedic Surgery | DX: Z09 Encounter for follow-up examination after completed treatment for conditions other than malignant neoplasm (principal); M17.12 Unilateral primary osteoarthritis, left knee; Z96.652 Presence of left artificial knee joint ==

== ENCOUNTER → 2017-05-20 | Outpatient (CLI) | payer OTHER ==
--- NOTE | 2017-05-20 15:12 | RADRPT ---
PROCEDURE: Left knee radiographs. CLINICAL INDICATION: Left knee pain. Postop. TECHNIQUE: Three views. Weight bearing. Frontal, lateral, and patellar view. COMPARISON: No prior studies are available for comparison. FINDINGS: There is no fracture or dislocation. There is soft tissue swelling superiorly anteriorly. There is a total left knee arthroplasty which appears satisfactory. There is ACL repair with metall ic anchors. There is no lytic or blastic lesion. There is no joint effusion. IMPRESSION: 1. Anterior superior soft tissue swelling. 2. Otherwise unremarkable postoperative appearance of the left knee. RPTAT: QQ .Anthony Hong MD, MD Date Time Electronically viewed and signed by .Anthony Hong MD, on 05/20/2017 15:12 .R/
== END | disposition home or self-care (01) ==
LOC: HKI 08:33
PROVIDERS: ATTEND Orthopaedic Surgery
DX: Z47.1 Aftercare following joint replacement surgery (principal); M17.12 Unilateral primary osteoarthritis, left knee; Z96.652 Presence of left artificial knee joint